=== PATIENT | female | born 1995 | race Caucasian/White ===

== ENCOUNTER 2017-05-29 10:00 | Emergency (ER) | payer MEDICARE, OTHER ==
[~2017-05-29] VITALS: Ht 160 cm; Wt 70.0 kg
[~2017-05-29 10:00] MED LIST: ADVAI100I INH; ALBU0.086 INH; CLON-352 PO; CONC54TA4 PO; GLUCTAB PO; LANTUS2P SC; LEXA20TA PO; MONT10TA2 PO; NOVOLOGP2 SC; RISP0.5T2 PO; SYNT88TA PO
[2017-05-29 11:45] VITALS: BP 124/72; PULSE 87; RESP 16; TEMP 98; O2SAT 99
--- NOTE | 2017-05-29 11:57 | PD ---
HPI Chief Complaint: Skin Problem Time Seen by Provider: 11:36 Travel History International Travel<30 days: No Contact w/Intl Traveler<30days: No Traveled to known affect area: No History of Present Illness HPI 21-year-old female presents to the emergency room for evaluation of rash to her bilateral hands that has been ongoing for the past 4 months. It is mostly on the dorsal aspects. The rash does not significantly vary or change. She has not put anything on it. Patient has not seen anyone else for it. She was sent by her boss today. 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 Reports occasional itching. History diabetes, hypothyroidism, bipolar disorder, and ADHD. History Past Medical Histgory Hx Cancer: No Social History Alcohol Use: No Tobacco Use: No Allergies-Medications (Allergen,Severity, Reaction): Coded Allergies: latex (Verified Allergy, Intermediate, ITCH, 05/29/17) azithromycin (Verified Allergy, Mild, 05/29/17) Reported Meds & Prescriptions Reported Meds & Active Scripts Active Lexapro (Escitalopram Oxalate) 20 Mg Tab 20 Mg PO DAILY Concerta (Methylphenidate HCl) Methylphenidate 54 mg Evelin 54 Mg PO DAILY Clonidine Hcl (Clonidine HCl) 0.1 Mg Tab 0.1 Mg PO BID Risperdal (Risperidone) 0.5 Mg Tab 0.5 Mg PO 05/16 BID Concerta (Methylphenidate HCl) Methylphenidate 54 mg Evelin 54 Mg PO DAILY Dispense Date: June Prescription 2 of 2 Proventil Ud 0.083% (2.5 Mg/3 Ml) (Albuterol Sulfate) 2.5 Mg/3 Ml Inha 2.5 Mg INH Q4 Reported Concerta (Methylphenidate HCl) Methylphenidate 54 mg Evelin 54 Mg PO DAILY Advair Diskus 100/50 (Salmeterol Xinafoate/Fluticasone) Fluticasone/Salmeterol 100/50 Inh Unknown Dose INH Q12H Novolog (Insulin Aspart) 100 Units/Ml Inj Unknown Dose SC Lantus (Insulin Glargine) 100 Units/Ml Inj Unknown Dose SC HS Synthroid (Levothyroxine Sodium) 88 Mcg Tab 88 Mcg PO DAILY Metformin Hcl Er (Metformin HCl) 500 Mg Tab Mg PO 2 BID Singulair (Montelukast Sodium) 10 Mg Tab 10 Mg PO HS Review of Systems Except as stated in HPI: all other systems reviewed are Neg Physical Exam Narrative GENERAL: Well-nourished, well-developed female in no acute distress. Afebrile. Ambulatory. SKIN: Focused skin assessment warm/dry. Slightly raised, erythematous, scaly plaques on the dorsal aspect of bilateral hands. No significant excoriations. HEAD: Normocephalic. EYES: No scleral icterus. No injection or drainage. NECK: Supple, trachea midline. No JVD or lymphadenopathy. CARDIOVASCULAR: Regular rate and rhythm without murmurs, gallops, or rubs. RESPIRATORY: Breath sounds equal bilaterally. No accessory muscle use. MUSCULOSKELETAL: No cyanosis, or edema. Data Data Last Documented VS Vital Signs Date Time Temp Pulse Resp B/P (MAP) Pulse Ox O2 Delivery O2 Flow Rate FiO2 05/29/17 11:45 98.0 87 16 124/72 (89) 99 MDM Medical Screen Exam Complete: Yes Emergency Medical Condition: No Differential Diagnosis Contact dermatitis Narrative Course 21-year-old female presents to the emergency room for evaluation of non-itchy rash to bilateral dorsal hands for the past 4 months. 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 No urgent or emergent medical conditions at this time. Patient was told to apply hydrocortisone cream and follow up with her primary care physician or return for worsening symptoms. She understands and agrees to plan. A medical screening exam was performed: At the time of evaluation the presenting medical condition was determined not to be of an emergent nature. The patient was given the option of receiving additional care, but declined. Patient was given options for additional community resources from which to obtain care. The Patient Has Been advised to seek medical attention for their presenting complaint. The patient has been advised to return to the ER at any time if an emergent condition develops. Primary Impression: Encounter for medical screening examination Disposition: 01 DISCHARGE HOME Condition: Stable Melva Rizzo May 29, 2017 11:57
== END 2017-05-29 12:09 | disposition left against medical advice (07) ==
LOC: NEPD 10:00
DX: Z00.00 Encounter for general adult medical examination without abnormal findings (principal); R21 Rash and other nonspecific skin eruption; E11.9 Type 2 diabetes mellitus without complications; E03.9 Hypothyroidism, unspecified; F31.9 Bipolar disorder, unspecified; F90.9 Attention-deficit hyperactivity disorder, unspecified type
CPT/HCPCS: 99282